=== PATIENT | female | born 2000 | race Caucasian/White ===

== ENCOUNTER 2023-07-27 19:52 | Emergency (ER) | payer MEDICAID | END 2023-07-27 20:30 | disposition left against medical advice (07) | LOC: MED 19:52 | DX: T14.8XXA Other injury of unspecified body region, initial encounter (principal); Z53.21 Procedure and treatment not carried out due to patient leaving prior to being seen by health care provider ==

== ENCOUNTER 2024-03-18 14:46 | Emergency (ER) | payer MEDICAID ==
[~2024-03-18] VITALS: Ht 162.6 cm; Wt 61.2 kg
[2024-03-18 14:53] VITALS: BP 138/95; PULSE 88; RESP 18; TEMP 98.1; O2SAT 100
[2024-03-18] MEDS ORDERED: BUPR1FIL2 SL (15:16)
[2024-03-18] MEDS ORDERED: ONDA8TAB87 PO (15:16)
[2024-03-18] MEDS: buprenorphine HCL 2 MG sublingual tab SL ONE (15:25)
[2024-03-18 16:19] VITALS: BP 130/91; PULSE 89; RESP 20; TEMP 98.1; O2SAT 99
== END 2024-03-18 16:19 | disposition home or self-care (01) ==
LOC: MED 14:46
DX: F11.23 Opioid dependence with withdrawal (principal); F17.200 Nicotine dependence, unspecified, uncomplicated; Z79.899 Other long term (current) drug therapy
CPT/HCPCS: 99283